=== PATIENT | male | born 1980 | race African-American/Black ===

== ENCOUNTER 2020-05-23 10:13 | Emergency (ER) | payer OTHER ==
[2020-05-23 10:28] VITALS: BP 145/75; PULSE 68; TEMP 99.8; BMI 23.5
[2020-05-23] MEDS ORDERED: BUPIVACAINE HCL 0.5% 250 MG/50 ML VIAL NR ONE (10:48)
[2020-05-23] MEDS ORDERED: AMOXICILLIN 500 MG CAPSULE (FP) PO ONE (10:49)
[2020-05-23] MEDS ORDERED: AMOXICILLIN 250 MG CAPSULE ONE (10:50)
[2020-05-23] MEDS ORDERED: IBUPROFEN 600 MG TABLET (FP) PO ONE (11:15)
== END 2020-05-23 11:25 | disposition home or self-care (01) ==
LOC: JERFT 10:13
DX: K08.89 Other specified disorders of teeth and supporting structures (principal); K04.7 Periapical abscess without sinus
CPT/HCPCS: 99283-25